=== PATIENT | female | born 1950 | race Caucasian/White ===

== ENCOUNTER 2019-07-01 12:44 | Emergency (ER) | payer MEDICARE, OTHER ==
[~2019-07-01] VITALS: Ht 160 cm; Wt 63.0 kg
--- NOTE | 2019-07-01 13:35 | NUR ---
HAT PLACED ON TOILET IN ATTACHED BATHROOM. PT GIVEN INSTRUCTIONS ON ITS USE. VERBALIZES AGREEMENT, DENIES ANY QUESTIONS, CONCERNS, OR NEEDS AT THIS TIME. CALL LIGHT IN REACH.
--- NOTE | 2019-07-01 13:56 | NUR ---
BEDSIDE REPORT RECEIVED FROM CAM ANGULO. PLAN OF CARE DISCUSSED. PATIENT SITTING ON SIDE OF BED WAITING TO GIVE STOOL SAMPLE. FAMILY IN ROOM.
--- NOTE | 2019-07-01 14:00 | NUR ---
STOOL SAMPLE COLLECTED AND WALKED TO LAB.
--- NOTE | 2019-07-01 14:46 | NUR ---
STOOL SAMPLE IN PROCESS, PATIENT RESTING ON GURNEY, RESPIRATIONS EVEN AND UNLABORED, CALL LIGHT IN REACH, FAMILY IN ROOM, DENIES NEEDS AT THIS TIME.
[2019-07-01 15:02] LABS: CLOSTRIDIUM DIFFICILE ANTIGEN POSITIVE; CLOSTRIDIUM DIFFICILE TOXIN POSITIVE (Negative)
[2019-07-01 15:40] VITALS: BP 105/68
--- NOTE | 2019-07-01 15:41 | NUR ---
Patient/Caregiver given discharge instructions and they have confirmed that they understand the instructions. Patient ambulatory with steady gait.
== END 2019-07-01 15:49 | disposition home or self-care (01) ==
LOC: ED 15:45
DX: A04.72 Enterocolitis due to Clostridium difficile, not specified as recurrent (principal)
CPT/HCPCS: 87324; 99283